=== PATIENT | female | born 1970 | race Caucasian/White ===

== ENCOUNTER 2021-07-14 13:12 | Emergency (ER) | payer MEDICAID ==
[~2021-07-14] VITALS: Ht 162.6 cm; Wt 64.0 kg
[2021-07-14] MEDS ORDERED: IBUPROFEN 600MG TABLET PO ONE (13:45)
[2021-07-14] MEDS ORDERED: ACETAMINOPHEN 325MG TABLET PO ONE (13:45)
[2021-07-14] MEDS ORDERED: TETANUS, DIPHTHERIA, PERTUSSIS VAC/PF 0.5ML (>10YR OLD) IM ONE (13:45)
[2021-07-14] MEDS ORDERED: TOPUD MT (14:51)
[2021-07-14] MEDS ORDERED: NAPR-1176 MT (14:51)
[2021-07-14 15:24] VITALS: BP 118/83
== END 2021-07-14 15:25 | disposition home or self-care (01) ==
LOC: ER 13:12
DX: M25.512 Pain in left shoulder (principal); M25.562 Pain in left knee; M79.671 Pain in right foot; G89.11 Acute pain due to trauma; V49.49XA Driver injured in collision with other motor vehicles in traffic accident, initial encounter; Y93.89 Activity, other specified; Y92.488 Other paved roadways as the place of occurrence of the external cause
CPT/HCPCS: 73030; 73562; 73630; 81025; 90471; 90715; 99284; A4565